=== PATIENT | male | born 1995 | race Caucasian/White ===

== ENCOUNTER 2023-07-10 13:33 | Emergency (ER) | payer MEDICAID, SELFPAY ==
[2023-07-10 13:35] VITALS: BP 131/86; PULSE 72; RESP 18; TEMP 36.6; O2SAT 99; BMI 32.1
--- NOTE | 2023-07-10 13:57 | XR_ITS ---
FINAL REPORT CLINICAL HISTORY: small finger injury with saw, r/o fb FINDINGS: LEFT HAND Three views demonstrate no acute fracture or dislocation. The visualized joint spaces are normally aligned. The soft tissues are unremarkable. No radiopaque foreign body is identified. IMPRESSION: No acute bony abnormality and no foreign body. Reviewed, Interpreted and Dictated by Gianni Canela III, MD Transcribed by Marlin Schultz Authenticated and [facility]
[2023-07-10] MEDS: TET/DIPHTH/PERT-ADULT 0.5ML SYRINGE 0.5 ML IM (14:18)
[2023-07-10] MEDS: cephALEXin 500MG CAPSULE 1000 MG PO (14:18)
[2023-07-10] MEDS: LIDOCAINE 1% 20ML MDV 20 ML SQ (15:04)
--- NOTE | 2023-07-10 15:41 | HMH.EDGENADL ---
Discharge Plan Disposition Patient Disposition: Home, Self-Care Prescriptions Prescriptions: New cephalexin 500 mg capsule 500 mg PO BID 5 Days Qty: 10 0RF Referrals Follow up/Referrals: Álvaro Hinds [Primary Care Provider] - See instructions Activity Restrictions/Add. Instructions Additional Instructions/Restrictions: Have stitches removed in approximately 10 to 14 days either here, or at home. Call your family doctor to establish care for this visit to the emergency department and schedule follow-up within 48 hours to ensure improvement. If you have any worsening of your condition or any other concerning signs or symptoms, return to the emergency department or your primary care doctor for further evaluation. Clinical Impressions Clinical Impression: Laceration Instructions Patient Instructions: DI for Laceration Repair Discharge ED Provider: Rafiq Vogt General Adult HPI General Chief complaint: Wound/Laceration Stated complaint: AO 07/10/23 @13:00, cut right hand/fingers Time Seen by Provider: 07/10/23 13:48 Mode of Arrival: Ambulatory Source of Information: Patient Limitations: No Limitations Description of Symptoms (Recalled from ER Triage Doc. by RN): Patient reports slipping while cutting and tree and grabbing a chainsaw with his left hand cutting his left pinky finger. History of Present Illness HPI narrative: 28-year-old male not up-to-date on tetanus presenting with chainsaw injury to the left small finger. Happened just before arrival. Almost dropped the chainsaw, caught it with his hand, it was not running. Sustained laceration, came immediately to the emergency department. Pain is mild, does not radiate. Patient not on blood thinners. Able to move it just fine Please note that above description of symptoms, in this electronic medical record under categorization of recalled from ER triage doctor by RN are reflective of an initial nursing assessment, however, is not reflective of my full history and physical exam that was personally taken and clarified. Consequentially, this preceding description of symptoms, which may include the patient's categorized chief complaint in the EMR, do not reflect my personal clinical impression, and the ultimate description of history of present illness and patient stated complaints should be deferred to this section of the note. Unless stated otherwise or congruent with this section of the note, additional signs, symptoms, or incongruence should be interpreted as inaccurate with my clinical impression. Related Data Previous Rx's Medication Instructions Recorded cephalexin 500 mg capsule 500 mg PO BID 5 days #10 caps 07/10/23 Allergies Allergy/AdvReac Type Severity Reaction Status Date / Time No Known Allergies Allergy Verified 07/10/23 13:46 [facility] Disclaimer: The information contained in this section may have been updated after the patient was seen, as this information can be updated by other users. Social History Smoking Status: Unknown if ever smoked alcohol intake: never current occupational status: employed Travel in the last 8 weeks: None ROS Obtained: Yes All systems reviewed & no additional complaints except as documented Physical Exam General General appearance: alert and in no apparent distress Head Head exam: atraumatic and normocephalic Eye Eye exam: Present normal appearance, PERRL and EOMI ENT ENT exam: Present mucous membranes moist Neck Neck exam: Present normal inspection, full ROM and trachea midline Respiratory Respiratory exam: Absent respiratory distress, wheezes, stridor, accessory muscle use or prolonged expiratory phase Cardiovascular Cardiovascular exam: Present normal rhythm Abdominal Exam Abdominal exam: Present soft; Absent distention, tenderness, guarding, rebound or rigidity Extremities Exam Extremities exam: Absent edema Neurological Exam Neurological exam: Present alert, oriented X3, CN II-XII intact and normal gait; Absent motor sensory deficit Skin Skin exam: Present warm and dry; Absent diaphoresis or erythema Medical Decision Making Medical Records Medical records reviewed: Yes I reviewed the patient's medical records. Royce Inquiry Pt receiving controlled substance: No Royce was queried for this patient: No Vital Signs: 07/10/23 13:35 Temperature 97.8 F Temperature Source Oral Pulse Rate [Radial] 72 Respiratory Rate 18 Blood Pressure [Right Arm] 131/86 Blood Pressure Mean [Right Arm] 101 Blood Pressure Source [Right Arm] Automatic Cuff Blood Pressure Position [Right Arm] Sitting 02 Sat by Pulse Oximetry 99 Oxygen Delivery Method Room Air Orders (Tests/Meds): ED MEDICATIONS Discontinued Medications Generic Name Dose Route Start Last Admin Trade Name Freq PRN Reason Stop Dose Admin Cephalexin HCl 1,000 mg 07/10/23 13:57 07/10/23 14:18 Cephalexin 500mg Capsule PO 07/10/23 13:58 1,000 mg ONCE ONE Administration Lidocaine HCl 20 ml 07/10/23 14:46 07/10/23 15:04 Lidocaine 1% 20ml Mdv SQ 07/10/23 14:47 20 ml ONCE ONE Administration Tetanus/Reduced Diphtheria/Acell Pertussis 0.5 ml 07/10/23 13:57 07/10/23 14:18 Tet/Diphth/Pert-Adult 0.5ml Syringe IM 07/10/23 13:58 0.5 ml .ONCE ONE Administration ORDERS Category Date Time Status Hand XR left minimum 3 views [XR hand LT min 3V] Stat Exams 07/10/23 13:57 Completed Medical Decision Narrative: 28-year-old male not up-to-date on tetanus presenting with chainsaw injury to the left small finger. Happened just before arrival. Almost dropped the chainsaw, caught it with his hand, it was not running. Sustained laceration, came immediately to the emergency department. Pain is mild, does not radiate. Patient not on blood thinners. Able to move it just fine. History obtained with patient. On arrival, patient hemodynamically stable, left upper extremity with 4 cm laceration extending from DIP of the palmar aspect of left little finger down to MCP #5. Linear, neurovascularly intact without gross contamination, range of motion fully intact. X-rays obtained, no obvious foreign body. Patient was updated on tetanus, given first dose of Keflex here in the emergency department. Laceration was repaired with 3-0 Prolene sutures x 13. Repaired without issue. Because patient at baseline without signs or symptoms of clinical decompensation, deemed appropriate for discharge. Results were relayed to patient who voiced understanding and were agreeable to outpatient management and follow up. I discussed my clinical impression with patient and answered all questions. At this time, the evidence for any other entities in the differential is insufficient to warrant any further testing or ED observation. This was explained as well. Advisory was given that persistent or worsening symptoms require further evaluation. I confirmed the understanding of this discussion. Critical Care Critical Care Time Critical Care Time: No
[2023-07-10 15:52] VITALS: BP 128/72; PULSE 70; RESP 18; TEMP 36.7; O2SAT 98
== END 2023-07-10 15:53 | disposition home or self-care (01) ==
PROVIDERS: Emergency Provider Emergency Medicine; PCP Family Medicine
DX: S61.412A Laceration without foreign body of left hand, initial encounter (principal); W31.2XXA Contact with powered woodworking and forming machines, initial encounter
CPT/HCPCS: 12002; 73130; 90471; 90715; 99283

== ENCOUNTER 2023-07-12 14:52 | Emergency (ER) | payer MEDICAID, SELFPAY ==
[2023-07-12 15:15] VITALS: BP 141/92; PULSE 75; RESP 18; TEMP 36.7; O2SAT 98; BMI 36.1
--- NOTE | 2023-07-12 15:38 | ED_ITS ---
Discharge Plan Disposition Patient Disposition: Home, Self-Care Condition: Good Prescriptions Prescriptions: New amoxicillin-pot clavulanate 875-125 mg Tablet 1 tab PO Q12H Qty: 20 0RF No Action cephalexin 500 mg Capsule 500 mg PO BID Referrals Follow up/Referrals: Álvaro Hinds [Primary Care Provider] - See instructions Activity Restrictions/Add. Instructions Additional Instructions/Restrictions: Watch for worsening of infection and if redness and drainage continues follow up with your Family Doctor immediately Stop the Cephalexin and start the Augmentin Clean wound with antibacterial soap and water Further wound care as you was instructed Clinical Impressions Clinical Impression: Wound infection Instructions Patient Instructions: Amoxicillin and Clavulanic Acid, DI for Wound Infection Discharge ED Provider: Irma Bergeron [facility] [place] HPI General Stated complaint: pus coming out of stiches on hand 07/09 Mode of Arrival: Ambulatory Source of Information: Patient Limitations: No Limitations Time Seen by Provider: 07/12/23 15:38 Description of Symptoms (Recalled from Triage Doc. by RN): PATIENT C/O REDNESS AND DRAINAGE FROM INCISION ON LEFT HAND HEENT Symptoms (Recalled from RN notes): No Resp Symptoms (Recalled from RN notes): No Skin Symptoms (Recalled from RN notes): Yes MS Symptoms (Recalled from RN notes): No Functional Status (Recalled from RN notes): WNL History of Present Illness Provider Complaint: Patient states that he had sutures a couple days ago from chainsaw injury and earlier he noticed area on his sutures that was red and started draining pus and then a splinter popped up out of it and after that drainage started looking more pinkish clear and now it is not draining but the redness looks like it is spreading so he came in Related Data Home Medications Medication Instructions Recorded Confirmed cephalexin 500 mg capsule 500 mg PO BID 07/12/23 07/12/23 Previous Rx's Medication Instructions Recorded amoxicillin 875 mg-potassium 1 tab PO Q12H #20 tabs 07/12/23 clavulanate 125 mg tablet Allergies Allergy/AdvReac Type Severity Reaction Status Date / Time No Known Allergies Allergy Verified 07/10/23 13:46 Worker's Comp Is this a Worker's Comp case?: No [facility] Disclaimer: The information contained in this section may have been updated after the patient was seen, as this information can be updated by other users. Social History (Updated 07/10/23 @ 15:44 by Rafiq Vogt MD) Smoking Status: Unknown if ever smoked alcohol intake: never current occupational status: employed Travel in the last 8 weeks: None ROS Obtained: Yes All systems reviewed & no additional complaints except as documented and Yes Systems reviewed as appropriate & no additional complaints except as documented Constitutional Constitutional: Reports system reviewed and no additional complaints, except as documented and Reports as per HPI ENT Ears, Nose, Mouth, and Throat: Reports system reviewed and no additional complaints, except as documented and Reports as per HPI Cardiovascular Cardiovascular: Reports system reviewed and no additional complaints, except as documented and Reports as per HPI Respiratory Respiratory: Reports system reviewed and no additional complaints, except as documented and Reports as per HPI Integumentary/Breasts Skin/Breast: Reports system reviewed and no additional complaints, except as documented, Reports as per HPI and Reports other Comments: infection in sutures he had placed a couple days ago Physical Exam General General appearance: alert and in no apparent distress ENT ENT exam: Present mucous membranes moist Respiratory Respiratory exam: Present normal lung sounds bilaterally; Absent respiratory distress or wheezes Cardiovascular Cardiovascular exam: Present regular rate, normal rhythm and normal heart sounds Abdominal Exam Abdominal exam: Present soft and normal bowel sounds; Absent distention or tenderness Expanded Upper Extremity Exam Left: Hand L/R front image: 2 1. other (laceration that is still closed with sutures, no active draining noted at this time however surrounding area appears red and warm and redness extending down finger into hand) Neurological Exam Neurological exam: Present alert, oriented X3 and normal gait Medical Decision Making Royce Inquiry Pt receiving controlled substance: No Royce was queried for this patient: No Vital Signs: 07/12/23 15:15 Temperature 98.1 F Temperature Source Oral Pulse Rate [Left Brachial] 75 Respiratory Rate 18 Blood Pressure [Left Arm] 141/92 H Blood Pressure Mean [Left Arm] 108 Blood Pressure Source [Left Arm] Automatic Cuff Blood Pressure Position [Left Arm] Sitting 02 Sat by Pulse Oximetry 98 Oxygen Delivery Method Room Air Medical Decision Narrative: medications discussed with pharmacy will stop the cephalexin and start Augmentin
[2023-07-12 15:55] VITALS: BP 141/92; PULSE 75; RESP 18; TEMP 36.7; O2SAT 98
== END 2023-07-12 15:59 | disposition home or self-care (01) ==
PROVIDERS: Emergency Provider Nurse Practitioner; PCP Family Medicine
DX: T81.40XA Infection following a procedure, unspecified, initial encounter (principal)
CPT/HCPCS: 99204; 99212; G0463